=== PATIENT | female | born 1995 | race Caucasian/White ===

== ENCOUNTER 2016-05-27 09:36 | Day surgery (SDC) | payer MEDICAID ==
[~2016-05-27] VITALS: Ht 175.3 cm; Wt 68.0 kg
[2016-05-27 10:23] VITALS: BP 115/79
[2016-05-27] MEDS ORDERED: ACET-1600 PO (10:32)
[2016-05-27] MEDS ORDERED: LACTATED RINGERS 1,000 ML IV SCH (10:33)
[2016-05-27] MEDS ORDERED: LIDOCAINE 1%, 2ML ONE (10:40)
[2016-05-27 10:51] LABS: HEMOGLOBIN 14.5 g/dL (11.7-16.4)
[2016-05-27] MEDS ORDERED: LIDOCAINE 1%, 2ML SQ PRN (11:00)
[2016-05-27] MEDS ORDERED: DOXYCYCLINE 100 MG in DEXTROSE 5% 250 ML IV ONE (11:00)
[2016-05-27] MEDS ORDERED: MISOPROSTOL 200 MCG TABLET ONE (11:21)
[2016-05-27] MEDS ORDERED: SILVER NITRATE STICK TP ONE (11:21)
[2016-05-27] MEDS ORDERED: OXYTOCIN 10 UNITS/ML, 1ML ONE (11:21)
[2016-05-27] MEDS ORDERED: METHYLERGONOVINE 0.2 MG/ML IM ONE (11:22)
[2016-05-27] MEDS ORDERED: SODIUM CITRATE/CITRIC ACID 30 ML UDC ONE (11:38)
[2016-05-27] MEDS ORDERED: CARBOPROST TROMETHAMINE 250 MCG/ML, 1ML IM ONE (11:41)
[2016-05-27] MEDS ORDERED: PROPOFOL 10 MG/ML, 20ML ONE (11:41)
[2016-05-27] MEDS ORDERED: PROPOFOL 10 MG/ML, 50ML ONE (11:41)
[2016-05-27] MEDS ORDERED: MIDAZOLAM 1 MG/ML, 2ML ONE (11:44)
[2016-05-27] MEDS ORDERED: FENTANYL PF 100 MCG/2ML ONE ×2 (11:45→12:21)
[2016-05-27] MEDS ORDERED: DOXYCYCLINE 100 MG ONE (11:55)
[2016-05-27] MEDS ORDERED: MEPERIDINE/PF 25MG/0.5ML ONE (12:35)
[2016-05-27] MEDS ORDERED: ACETAMINOPHEN 650 MG/20.3 ML UDC ONE (12:51)
[2016-05-27] MEDS ORDERED: OXYcodone 5 MG/5 ML ORAL.SOL UDC ONE (12:52)
[2016-05-27] MEDS ORDERED: ACETAMINOPHEN 325 MG TABLET ONE (12:52)
[2016-05-27] MEDS ORDERED: OXYcodone 5 MG/5 ML ORAL.SOL UDC PO PRN (13:00)
[2016-05-27] MEDS ORDERED: KETOROLAC 30 MG/1 ML IV PRN (13:00)
[2016-05-27] MEDS ORDERED: ACETAMINOPHEN 325 MG TABLET PO PRN (13:00)
[2016-05-27] MEDS ORDERED: FENTANYL PF 100 MCG/2ML IV PRN (13:00)
[2016-05-27] MEDS ORDERED: ONDANSETRON 2MG/ML, 2ML IVPush PRN (13:00)
[2016-05-27] MEDS ORDERED: MEPERIDINE/PF 25MG/0.5ML IVPush PRN (13:00)
[2016-05-27] MEDS ORDERED: HYDROmorphone 1 MG/ML, 1ML IV PRN (13:00)
[2016-05-27] MEDS ORDERED: METOCLOPRAMIDE 5 MG/ML, 2ML IV PRN (13:00)
[2016-05-27] MEDS ORDERED: ONDANSETRON 2MG/ML, 2ML ONE (13:01)
== END 2016-05-27 14:25 ==
LOC: OUT 09:36
PROVIDERS: ATTEND Obstetrics & Gynecology
DX: O02.1 Missed abortion (principal); Z3A.08 8 weeks gestation of pregnancy; F17.210 Nicotine dependence, cigarettes, uncomplicated; Z72.89 Other problems related to lifestyle
CPT/HCPCS: 36415; 59820; 85025; 86850; 86900; 88305; J2175; J2210; J2250; J2405; J2704; J3010; J3490; J7120; J2590

== ENCOUNTER 2017-09-13 01:15 | Outpatient (CLI) | payer MEDICAID ==
[~2017-09-13] VITALS: Ht 175.3 cm; Wt 82.7 kg
[~2017-09-13 01:15] MED LIST: ACET-1600 PO
[2017-09-13 01:34] LABS: MICROSCOPIC NOT IND
[2017-09-13] MEDS ORDERED: PREN-59 PO (01:51)
== END 2017-09-13 02:07 | disposition home or self-care (01) ==
LOC: LDOP 01:15
PROVIDERS: ATTEND Student in an Organized Health Care Education/Training Program
DX: O26.893 Other specified pregnancy related conditions, third trimester (principal); R10.9 Unspecified abdominal pain; Z3A.35 35 weeks gestation of pregnancy
CPT/HCPCS: 59025; 81003; 87086; 99211; G0463

== ENCOUNTER 2017-10-06 01:13 | Outpatient (CLI) | payer MEDICAID ==
[~2017-10-06] VITALS: Ht 175.3 cm; Wt 72.7 kg
[~2017-10-06 01:13] MED LIST changes: +PREN-59 PO
[2017-10-06 01:38] VITALS: BP 134/88
== END 2017-10-06 03:58 | disposition home or self-care (01) ==
LOC: LDOP 01:13
PROVIDERS: ATTEND Student in an Organized Health Care Education/Training Program
DX: O26.893 Other specified pregnancy related conditions, third trimester (principal); R10.9 Unspecified abdominal pain; Z3A.39 39 weeks gestation of pregnancy; Z88.0 Allergy status to penicillin
CPT/HCPCS: 59025; 99211; G0463

== ENCOUNTER 2017-10-08 14:42 | Inpatient (IN) | payer MEDICAID ==
[~2017-10-08] VITALS: Ht 175.3 cm; Wt 84.5 kg
[2017-10-08 14:53] VITALS: BP 119/81
[2017-10-08] MEDS ORDERED: D5%-LACTATED RINGERS 1,000 ML IV SCH (15:29)
[2017-10-08] MEDS ORDERED: OXYTOCIN 30U/ 0.9% NaCL 500ML 500 ML IV ONE (15:29)
[2017-10-08] MEDS ORDERED: CALCIUM CARBONATE 500 MG TAB.CHEW PO PRN (15:30)
[2017-10-08] MEDS ORDERED: ONDANSETRON 2MG/ML, 2ML IVPush PRN ×2 (15:30→23:30)
[2017-10-08] MEDS ORDERED: FENTANYL PF 100 MCG/2ML IVPush PRN (15:30)
[2017-10-08] MEDS ORDERED: FENTANYL PF 100 MCG/2ML IV PRN (15:30)
[2017-10-08 16:13] LABS: BASOPHILS # (AUTO) 0.02 x10^3/uL (0-0.1); BASOPHILS % (AUTO) 0 % (0-1); EOSINOPHILS # (AUTO) 0.02 x10^3/uL (0-0.4); EOSINOPHILS % (AUTO) 0 % (1-7); LYMPHOCYTES # (AUTO) 2.29 x10^3/uL (1-3.4); LYMPHOCYTES % (AUTO) 25 % (22-44); MD NO; MEAN CORPUSCULAR HEMOGLOBIN 31.7 pg (27.0-34.8); MEAN CORPUSCULAR HGB CONC 34.1 g/dL (32.4-35.8); MEAN PLATELET VOLUME 8.9 fL (7.4-10.4); MONOCYTES # (AUTO) 0.72 x10^3/uL (0.2-0.8); MONOCYTES % (AUTO) 8 % (2-9); NEUTROPHILS # (AUTO) 6.15 x10^3/uL (1.8-6.8); NEUTROPHILS % (AUTO) 67 % (42-75); PLATELET COUNT 228 x10^3/uL (130-400); RED BLOOD COUNT 4.15 x10^6/uL (3.82-5.3); RED CELL DISTRIBUTION WIDTH 14.6 % (9.6-15.2)
[2017-10-08] MEDS ORDERED: OXYTOCIN 30U/ 0.9% NaCL 500ML 500 ML ONE ×2 (16:56→23:58)
[2017-10-08] MEDS ORDERED: OXYTOCIN 30U/ 0.9% NaCL 500ML 500 ML IV PRN (17:02)
[2017-10-08] MEDS: LACTATED RINGERS 1,000 ML IV SCH ×3 (17:09→20:37)
[2017-10-08] MEDS ORDERED: FENTANYL/BUPIV./NS/PF 250 ML EPIDCONT SCH ×2 (19:55→23:11)
[2017-10-08] MEDS ORDERED: FENTANYL PF 100 MCG/2ML ONE ×2 (19:58→20:40)
[2017-10-08] MEDS ORDERED: ONDANSETRON 2MG/ML, 2ML ONE (19:58)
[2017-10-08 20:00] VITALS: BP 106/67
[2017-10-08] MEDS ORDERED: FENTANYL PF 500 MCG, BUPIVACAINE/PF 0.5%, 30ML 62.5 ML in SODIUM CHLORIDE 0.9% 177.5 ML EPIDCONT SCH (20:00)
[2017-10-08] MEDS ORDERED: BUPIVACAINE 0.25% ONE (20:40)
[2017-10-08] MEDS ORDERED: NEWBORN KIT ONE (21:29)
[2017-10-08] MEDS ORDERED: EPHEDRINE 50 MG/ML, 1ML ONE (21:50)
[2017-10-08] MEDS ORDERED: LACTATED RINGERS 1,000 ML IV SCH ×2 (21:51→23:11)
[2017-10-08] MEDS: EPHEDRINE 50 MG/ML, 1ML IVPush PRN ×2 (21:59→22:18)
[2017-10-08] MEDS ORDERED: LACTATED RINGERS 1,000 ML IVBOLUS PRN ×2 (22:00→23:30)
[2017-10-08] MEDS ORDERED: EPHEDRINE 50 MG/ML, 1ML IVPush PRN (23:30)
[2017-10-08] MEDS ORDERED: MISOPROSTOL 200 MCG TABLET ONE (23:58)
[2017-10-08] MEDS ORDERED: LIDOCAINE 1%, 50ML ONE (23:58)
[2017-10-09] MEDS: OXYTOCIN 30U/ 0.9% NaCL 500ML 500 ML IV SCH ×3 (02:50→22:31)
[2017-10-09] MEDS ORDERED: MEASLES,MUMPS&RUBELLA VACC/PF 0.5 ML SQ PRN (03:00)
[2017-10-09] MEDS ORDERED: MAGNESIUM HYDROXIDE 8%, 30ML UDC PO PRN (03:00)
[2017-10-09] MEDS ORDERED: RHOGAM FROM BLOOD BANK 1 NOTE EA IM/IV ONE (03:00)
[2017-10-09] MEDS ORDERED: CALCIUM CARBONATE 500 MG TAB.CHEW PO PRN (03:00)
[2017-10-09] MEDS ORDERED: MISOPROSTOL 200 MCG TABLET PR PRN (03:00)
[2017-10-09] MEDS ORDERED: DIPH,PERTUSS(ACELL),TET VAC/PF NC IM-VACC PRN (03:00)
[2017-10-09] MEDS ORDERED: OXYcodone IR 5MG TABLET PO PRN (03:00)
[2017-10-09] MEDS ORDERED: OXYcodone/APAP 5/325MG TABLET PO PRN (03:00)
[2017-10-09] MEDS ORDERED: ONDANSETRON 2MG/ML, 2ML IV PRN (03:00)
[2017-10-09] MEDS ORDERED: IBUPROFEN 600 MG TABLET ONE (04:04)
[2017-10-09] MEDS: IBUPROFEN 600 MG TABLET PO PRN ×3 (04:05→21:05)
[2017-10-09 04:30] VITALS: BP 112/71
[2017-10-09] MEDS: PRENATAL VIT/IRON/FA 1 EACH TABLET PO SCH (07:54)
[2017-10-09] MEDS: DOCUSATE 100 MG CAPSULE PO PRN (07:54)
[2017-10-09 08:00] VITALS: BP 106/67
[2017-10-09 10:16] LABS: MEAN CORPUSCULAR HEMOGLOBIN 31.3 pg (27.0-34.8); MEAN CORPUSCULAR HGB CONC 33.9 g/dL (32.4-35.8); MEAN CORPUSCULAR VOLUME 92.3 fL (80-100); MEAN PLATELET VOLUME 8.8 fL (7.4-10.4); PLATELET COUNT 198 x10^3/uL (130-400); RED BLOOD COUNT 3.29 x10^6/uL (3.82-5.3); RED CELL DISTRIBUTION WIDTH 14.1 % (9.6-15.2)
[2017-10-09 10:37] LABS: BASOPHILS # (AUTO) 0.06 x10^3/uL (0-0.1); BASOPHILS % (AUTO) 1 % (0-1); EOSINOPHILS % (AUTO) 0 % (1-7); LYMPHOCYTES # (AUTO) 2.26 x10^3/uL (1-3.4); LYMPHOCYTES % (AUTO) 19 % (22-44); MD SCAN; MONOCYTES # (AUTO) 1.13 x10^3/uL (0.2-0.8); MONOCYTES % (AUTO) 9 % (2-9); NEUTROPHILS # (AUTO) 8.68 x10^3/uL (1.8-6.8); NEUTROPHILS % (AUTO) 72 % (42-75)
[2017-10-09 12:05] VITALS: BP 100/66
[2017-10-09 16:40] VITALS: BP 95/61
[2017-10-09 19:40] VITALS: BP 101/67
[2017-10-10] MEDS: IBUPROFEN 600 MG TABLET PO PRN ×2 (06:35→13:09)
[2017-10-10] MEDS: OXYTOCIN 30U/ 0.9% NaCL 500ML 500 ML IV SCH (07:33)
[2017-10-10] MEDS: DOCUSATE 100 MG CAPSULE PO PRN (07:40)
[2017-10-10] MEDS: PRENATAL VIT/IRON/FA 1 EACH TABLET PO SCH (07:40)
[2017-10-10 08:06] VITALS: BP 105/70
[2017-10-10] MEDS ORDERED: IBUP-1222 PO (11:29)
== END 2017-10-10 15:55 | disposition home or self-care (01) | DRG 775 ==
LOC: LDOP 14:42 → LDIP 15:29 → 2NW 10-09 04:09
PROVIDERS: ADMIT Student in an Organized Health Care Education/Training Program; ATTEND Student in an Organized Health Care Education/Training Program
PROC: 10E0XZZ Delivery of Products of Conception, External Approach (ICD-10-PCS; principal; 2017-10-09)
PROC: 0W8NXZZ Division of Female Perineum, External Approach (ICD-10-PCS; 2017-10-09)
PROC: 3E0R3BZ Introduction of Anesthetic Agent into Spinal Canal, Percutaneous Approach (ICD-10-PCS; 2017-10-09)
PROC: 00HU33Z Insertion of Infusion Device into Spinal Canal, Percutaneous Approach (ICD-10-PCS; 2017-10-09)
PROC: 3E033VJ Introduction of Other Hormone into Peripheral Vein, Percutaneous Approach (ICD-10-PCS; 2017-10-09)
DX: O42.92 Full-term premature rupture of membranes, unspecified as to length of time between rupture and onset of labor (principal); O69.81X0 Labor and delivery complicated by cord around neck, without compression, not applicable or unspecified; Z3A.39 39 weeks gestation of pregnancy; Z37.0 Single live birth; Z80.3 Family history of malignant neoplasm of breast; Z80.41 Family history of malignant neoplasm of ovary; Z83.3 Family history of diabetes mellitus
CPT/HCPCS: 36415; 82803; 85025; 86850; 86900; 89060; 90715; J2405; J3010; J3490; J2590; J7050; J7120; Q0114